=== PATIENT | male | born 1960 | race Caucasian/White ===

== ENCOUNTER 2018-09-10 12:09 | Inpatient (IN) | payer OTHER ==
[~2018-09-10] VITALS: Ht 190.5 cm; Wt 99.8 kg
[2018-09-10] MEDS ORDERED: CARI350T27 PO (12:26)
[2018-09-10] MEDS ORDERED: OXYC-133 PO (12:26)
[2018-09-10] MEDS ORDERED: MAGNESIUM HYDROXIDE 30 ML LIQUID UDC PO PRN (13:45)
[2018-09-10] MEDS ORDERED: MAG HYDROX/AL HYDROX/SIMETH 30 ML LIQUID UDC PO PRN (13:45)
[2018-09-10] MEDS ORDERED: CARISOPRODOL 350 MG TABLET PO PRN (14:45)
[2018-09-10] MEDS: OXYCODONE/APAP 5-325 MG TABLET PO PRN (17:13)
[2018-09-10 20:00] VITALS: BP 140/81
[2018-09-10] MEDS: DULOXETINE 30 MG CAPSULE.DR PO SCH (20:40)
[2018-09-10] MEDS: TEMAZEPAM 7.5 MG CAPSULE PO PRN (20:40)
[2018-09-11] MEDS: OXYCODONE/APAP 5-325 MG TABLET PO PRN ×4 (00:06→19:58)
[2018-09-11 07:30] VITALS: BP 142/81
[2018-09-11] MEDS: ACETAMINOPHEN 325 MG TABLET PO PRN ×2 (10:52→17:24)
[2018-09-11] MEDS: CARISOPRODOL 350 MG TABLET PO PRN ×2 (12:50→19:58)
[2018-09-11 16:05] VITALS: BP 135/98
[2018-09-11] MEDS: DULOXETINE 30 MG CAPSULE.DR PO SCH (20:01)
[2018-09-11 20:08] VITALS: BP 147/94
[2018-09-11] MEDS: TEMAZEPAM 7.5 MG CAPSULE PO PRN (22:14)
[2018-09-12] MEDS ORDERED: OXYCODONE/APAP 5-325 MG TABLET ONE (02:13)
[2018-09-12] MEDS: OXYCODONE/APAP 5-325 MG TABLET PO PRN ×3 (02:15→21:08)
[2018-09-12] MEDS: CARISOPRODOL 350 MG TABLET PO PRN ×3 (07:20→23:58)
[2018-09-12] MEDS: ACETAMINOPHEN 325 MG TABLET PO PRN (07:20)
[2018-09-12 08:22] VITALS: BP 141/90
[2018-09-12] MEDS: LORAZEPAM 1 MG TABLET PO PRN ×2 (14:07→20:15)
[2018-09-12 14:30] VITALS: BP 152/105
[2018-09-12] MEDS: DULOXETINE 30 MG CAPSULE.DR PO SCH (20:19)
[2018-09-12 20:35] VITALS: BP 132/89
[2018-09-13] MEDS: TEMAZEPAM 7.5 MG CAPSULE PO PRN (00:35)
[2018-09-13] MEDS: LORAZEPAM 1 MG TABLET PO PRN (02:40)
[2018-09-13] MEDS: OXYCODONE/APAP 5-325 MG TABLET PO PRN (03:24)
[2018-09-13] MEDS: CARISOPRODOL 350 MG TABLET PO PRN (08:19)
== END 2018-09-13 09:45 | disposition home or self-care (01) | DRG 885 ==
LOC: ER 12:09 → GPS 12:52
PROVIDERS: ADMIT Psychiatry & Neurology Psychiatry; ATTEND Nurse Practitioner Acute Care
DX: F32.2 Major depressive disorder, single episode, severe without psychotic features (principal); G89.4 Chronic pain syndrome; F41.9 Anxiety disorder, unspecified; F10.20 Alcohol dependence, uncomplicated; Y90.9 Presence of alcohol in blood, level not specified; Z63.5 Disruption of family by separation and divorce; M51.26 Other intervertebral disc displacement, lumbar region
CPT/HCPCS: 36415; A4663